=== PATIENT | female | born 1940 | race Caucasian/White ===

== ENCOUNTER 2023-11-22 11:54 | Emergency (ER) | payer MEDICARE, OTHER ==
[2023-11-22] MEDS ORDERED: HYDROcodone/Acetaminophen 5/325 mg Tablet ONE (12:26)
[2023-11-22] MEDS ORDERED: Ketorolac Tromethamine 30 MG (1 mL) VIAL ONE (12:26)
== END 2023-11-22 12:50 | disposition home or self-care (01) ==
LOC: CSHERS 11:54
DX: M75.02 Adhesive capsulitis of left shoulder (principal)
CPT/HCPCS: 73030; 96372; 99283; J1885